=== PATIENT | male | born 1960 ===

== ENCOUNTER 2018-11-10 10:58 | Day surgery (SDC) | payer BC ==
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
[~2018-11-10 10:58] MED LIST: Acetaminophen TAB* 325 MG PO ONE; Buffered Lidocaine 0.9% SYRIN* 5 ML/SYR SYRINGE INTRADERM ONE; Gabapentin CAP(*) 300 MG PO ONE; Lactated Ringers 1000 ML Bag* 1,000 ML IV SCH
[2018-11-10] MEDS ORDERED: Gabapentin CAP(*) 300 MG ONE (11:25)
[2018-11-10] MEDS ORDERED: Acetaminophen TAB* 325 MG ONE (11:26)
[2018-11-10] MEDS ORDERED: Clindamycin 900 MG/D5W BAG(*) 900 MG/50 ML BAG IVPB ONE (11:26)
[2018-11-10] MEDS ORDERED: Midazolam* 1 MG/ML 2 ML VIAL (2 MG) ONE ×2 (12:56→13:50)
[2018-11-10] MEDS ORDERED: Metoprolol Tartrate IV* 1 MG/ML 5 ML VIAL ONE (12:56)
[2018-11-10] MEDS ORDERED: fentaNYL* 50 MCG/ML 2 ML VIAL (100 MCG VIAL) ONE (12:56)
[2018-11-10] MEDS ORDERED: hydrALAZINE IV* 20 MG/ML VIAL ONE (12:56)
[2018-11-10] MEDS ORDERED: Bupivacaine 0.5% W/EPI SDV* 30 ML VIAL ONE (13:56)
[2018-11-10] MEDS ORDERED: Lidocaine 1% INJ* 10 MG/ML 30 ML SDV ONE (13:56)
[2018-11-10] MEDS ORDERED: Propofol* 10 MG/ML 20 ML BTL ONE (14:00)
[2018-11-10] MEDS ORDERED: EPHEDrine (Pressors)* 50 MG/ML VIAL ONE (14:00)
[2018-11-10] MEDS ORDERED: Famotidine IV* 10 MG/ML 2 ML (20 mg) ONE (14:00)
[2018-11-10] MEDS ORDERED: Ketorolac INJ* 30 MG/ML 1 ML VIAL ONE (14:00)
[2018-11-10] MEDS ORDERED: Dexamethasone IV* 4 MG/ML 1 ML (4 MG) ONE (14:00)
[2018-11-10] MEDS ORDERED: PROCHLORPERAZINE INJ 5 MG/ML 2 ML VIAL IV PRN (14:18)
[2018-11-10] MEDS ORDERED: diPHENhydraMINE IV* 50 MG/ML 1 ml VIAL (BENADRYL) IV PRN (14:18)
[2018-11-10] MEDS ORDERED: Naloxone* 0.4 MG/ML 1 ML VIAL IV PRN (14:18)
[2018-11-10] MEDS ORDERED: Levalbuterol 0.63MG/3ML NEB* UNIT OF USE INH PRN (14:18)
[2018-11-10] MEDS ORDERED: Ondansetron INJ* 2 MG/ML VIAL IV PRN (14:18)
[2018-11-10] MEDS ORDERED: fentaNYL* 50 MCG/ML 2 ML VIAL (100 MCG VIAL) IV PRN (14:18)
[2018-11-10] MEDS ORDERED: DiMENhydriNATE IV* 50 MG/ML VIAL IV PUSH PRN (14:18)
[2018-11-10] MEDS ORDERED: HYDROcodone/ACETAMIN 5-325 MG* 1 TAB PO PRN ×2 (14:18)
--- NOTE | 2018-11-10 14:43 | OP ---
Operative Report - Blank - Operative Report Date of Operation: 11/10/18 Note: Brief Operative Note Preop Dx: Left Inguinal Hernia Postop Dx: same,indirect Procedure: open repair LIH w/ mesh Anesthesia: local MAC Surgeon: Kaykay Fabric Lay Out Worker: ALBERTO Bustos Fluids: 1000 ml RL EBL: none Specimen: none Drains: none Findings: dictated
[2018-11-10] MEDS ORDERED: HYDROcodone/ACETAMIN 5-325 MG* 1 TAB ONE (15:46)
[2018-11-10 15:55] VITALS: BP 141/94
--- NOTE | 2018-11-10 22:29 | OP ---
DATE OF OPERATION: 11/10/18 - [facility] DATE OF : 60 SURGEON: Dhaval Mccracken MD CASE REVIEWER: None. ANESTHESIOLOGIST: Dr. Mcgovern. ANESTHESIA: General and local. PRE-OPERATIVE DIAGNOSIS: Left inguinal hernia. POST-OPERATIVE DIAGNOSIS: Left inguinal hernia. OPERATIVE PROCEDURE: Open repair left inguinal hernia with mesh. ESTIMATED BLOOD LOSS: Minimal. IV FLUIDS: 1 L. SPECIMEN: None. DRAINS: None. COMPLICATIONS: None. COUNTS: The instrument, needle and sponge counts were correct. DESCRIPTION OF PROCEDURE: The patient was brought to the operating room and placed on the table supine. He was administered general anesthesia and his abdomen was prepped and draped in usual sterile fashion. He received appropriate intravenous antibiotics. Time-out was performed. Local anesthetic was infiltrated into the left groin as a field block and an oblique incision was created in the left groin, subcutaneous tissues were divided with cautery, external oblique aponeurosis was identified and incised along the line of its fibers through the superficial ring and the aponeurosis was reflected back upon itself. The ilioinguinal nerve was identified and preserved in the lateral direction. The contents of the inguinal canal were isolated with a 0.25- inch Molina drain at the level of pubic tubercle and inspection revealed an indirect inguinal hernia sac, which did not appear to have any sliding component. Cord structures were dissected free from the sac. The sac was able to be fully reduced beyond the deep ring. The sac first was twisted upon itself and was ligated with a 2-0 Polysorb. Distal portion of the sac was divided and the proximal portion was allowed to retract. Repair was performed with a polypropylene plug and patch. First, the cone shape plug was created from a 6 x 6 inch piece of polypropylene and this was placed into the deep ring and sutured to the overlying musculature with 2-0 Vicryl suture. An onlay patch was then fashioned to cover the entire floor of the canal. This was sutured to the pubic tubercle to the shelving edge of the inguinal ligament and to the conjoint tendon with interrupted 2-0 Vicryl. Tails were fashioned in the mesh laterally to allow the egress of the spermatic cord and the mesh was reconstituted laterally with interrupted 2-0 Prolene. Tails were tucked beneath the external oblique aponeurosis and the ilioinguinal nerve was returned to its anatomic position. The external oblique aponeurosis was run close with 2-0 Vicryl. Luis's was closed with 3-0 Vicryl in interrupted fashion. Skin was closed with 4- 0 Monocryl in subcuticular fashion and Steri-Strips applied. The patient tolerated the procedure well, was awakened and transferred to Recovery in stable condition. [id number]/[facility] #: [id number] [facility] HOSPITALLuis Enrique
== END 2018-11-10 16:24 | disposition home or self-care (01) ==
LOC: OR 10:58
PROVIDERS: ATTEND Surgery
DX: K40.90 Unilateral inguinal hernia, without obstruction or gangrene, not specified as recurrent (principal); F17.210 Nicotine dependence, cigarettes, uncomplicated; I10 Essential (primary) hypertension
CPT/HCPCS: A9270-GY; C1781; J0360; J1100; J1885; J2250; J2704; J3010; J3490